=== PATIENT | male | born 1975 | race Caucasian/White ===

== ENCOUNTER 2021-08-16 07:03 | Outpatient (REF) | payer OTHER, SELFPAY ==
[2021-08-16 11:21] LABS: Alanine Aminotransferase 20 U/L (0-40); Albumin Level 4.4 g/dL (3.5-5.0); Alkaline Phosphatase 93 U/L (39-117); Anion Gap 13 (12-20); Aspartate Amino Transferase 14 U/L (5-37); Bilirubin Total 0.6 mg/dL (0.0-1.0); Blood Urea Nitrogen 13 mg/dL (9-16); Calcium 9.2 mg/dL (8.4-10.2); Carbon Dioxide 26 mmol/L (22-29); Chloride 105 mmol/L (96-108); Cholesterol 257 mg/dL; Estimated Glomerular Filt Rate > 60; Glucose Fasting 100 mg/dL (60-99); HDL Cholesterol 46 mg/dL; LDL Cholesterol Calculated 175 mg/dl; Potassium 4.5 mmol/L (3.3-5.1); Sodium 139 mmol/L (135-145); Total Protein 7.3 g/dL (6.5-8.0); Triglycerides 184 mg/dL
[2021-08-16 11:31] LABS: Prostate Specific Antigen Scr 1.23 ng/mL (<0.05-4.0); TSH reflex Free T4 0.97 uIU/mL (0.32-4.0)
== END 2021-08-16 07:04 | disposition home or self-care (01) ==
LOC: HO.WFDLDS 07:03
PROVIDERS: Visit Provider Family Medicine
DX: Z00.00 Encounter for general adult medical examination without abnormal findings (principal); Z12.5 Encounter for screening for malignant neoplasm of prostate
CPT/HCPCS: 36415; 80053; 80061; 84153; 84443

== ENCOUNTER 2021-12-05 09:22 | Outpatient (REF) | payer OTHER, SELFPAY ==
[2021-12-05 13:25] LABS: Influenza A PCR NEGATIVE (Negative); Influenza B PCR NEGATIVE (Negative); Resp Syncy Virus RNA Qual PCR NEGATIVE (Negative); SARS COV2 PCR INHOUSE NEGATIVE (Negative)
== END 2021-12-05 09:23 | disposition home or self-care (01) ==
LOC: HO.LAB 09:22
PROVIDERS: Visit Provider Hospitalist
DX: R68.89 Other general symptoms and signs (principal); Z20.822 Contact with and (suspected) exposure to COVID-19
CPT/HCPCS: 0241U

== ENCOUNTER 2022-01-10 08:34 | Outpatient (REF) | payer OTHER, SELFPAY ==
[2022-01-10 13:13] LABS: Prostate Specific Antigen Scr 2.06 ng/mL (<0.05-4.0); TSH reflex Free T4 0.94 uIU/mL (0.32-4.0)
[2022-01-10 13:31] LABS: Alanine Aminotransferase 24 U/L (0-40); Albumin Level 4.2 g/dL (3.5-5.0); Alkaline Phosphatase 100 U/L (39-117); Anion Gap 10 (12-20); Aspartate Amino Transferase 14 U/L (5-37); Bilirubin Total 0.5 mg/dL (0.0-1.0); Carbon Dioxide 27 mmol/L (22-29); Chloride 105 mmol/L (96-108); Cholesterol 177 mg/dL; Estimated Glomerular Filt Rate > 60; Glucose Fasting 108 mg/dL (60-99); HDL Cholesterol 40 mg/dL; LDL Cholesterol Calculated 111 mg/dl; Sodium 138 mmol/L (135-145); Total Protein 7.1 g/dL (6.5-8.0); Triglycerides 130 mg/dL
[2022-01-10 14:09] LABS: Appearance Urine HAZY; Color Urine YELLOW; Glucose Urine UA NEG (NEG); Leukocyte Esterase Urine NEG (NEG); Nitrite Urine NEG (NEG); Urine Blood NEG (NEG); Urine Ketones NEG (NEG); Urine Protein NEG (NEG-TRACE)
[2022-01-10 14:54] LABS: Microalbum/Creatinine Ratio Ur 4.7 ug/mg cr
[2022-01-10 15:04] LABS: Blood Urea Nitrogen 13 mg/dL (9-16); Calcium 9.4 mg/dL (8.4-10.2); Potassium 4.2 mmol/L (3.3-5.1)
== END 2022-01-10 08:35 | disposition home or self-care (01) ==
LOC: HO.WFDLDS 08:34
PROVIDERS: Visit Provider Family Medicine
DX: Z00.00 Encounter for general adult medical examination without abnormal findings (principal); Z12.5 Encounter for screening for malignant neoplasm of prostate; I10 Essential (primary) hypertension
CPT/HCPCS: 36415; 80053; 80061; 81003; 82043; 84153; 84443

== ENCOUNTER 2023-07-12 16:22 | Outpatient (AMB) | payer OTHER, SELFPAY ==
--- NOTE | 2023-07-12 16:23 | MHC.PC.OV ---
Vital Signs 07/12/23 16:24 Height 5 ft 10 in Weight 196 lb 6 oz BMI 28.2 BP 134/76 Blood Pressure Location Lt brachial Position Sitting Respiration 12 Pulse 83 Pulse Source Pulse Oximeter Temp 97.8 F Temp Source Temporal Artery Scan Pulse Oximetry (%) 98 Oxygen Delivery Method Room Air Intake Visit Reasons: f/u pre-diabetes Intake Note: Patient would like to quit smoking and would like some treatmen options to do so. Bryologist Required: No Accompanied by: Self / Same As Patient Allergies No Known Allergies Allergy (Verified 07/12/23 16:47) Medication List - Last Reconciled 07/12/23 by Chuy Dickerson CNP varenicline (Chantix Starting Month Box) PO PER PKG DIR Tobacco use date assessed: 07/12/23 Dental Screening Dental Screen Date: 07/12/23 Did you have a dental visit in the last 12 months?: No Did you have a dental problem in the last 6 months where you did not have access to dental care?: No Was dental information given to patient?: Yes HPI HPI Comments History of Present Illness Details 48-year-old male presents for pre diabetes follow-up. He was last seen by his PCP on 02/07/2022. His A1c was 5.7%. Lifestyle changes was recommended. He notes he quit smoking cigarette for 1 year with Varenicline; he started smoking 4 months ago. He notes he smokes 15 cigarette daily. He requests Varenicline for smoking cessation. He denies acute symptoms. [facility] Medical History (Updated 07/12/23 @ 16:36 by Mayte Bueno MA) No pertinent past medical history Surgical History (Updated 07/12/23 @ 16:36 by Mayte Bueno MA) No pertinent past surgical history Family History Mother No problems noted. Father No problems noted. 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 Jeffry Bedoya, Yeni Rice, Colten Abraham and colleagues, with an educational anna from [employer]. Review of Systems Const Details: Const Denies chills, Denies fatigue, Denies fever(s), Denies headache(s) and Denies weakness ENT Denies dizziness and Denies headache(s) Card Denies chest pain, Denies lightheadedness, Denies dyspnea and Denies other (Palpitations) Resp Denies cough, Denies dyspnea, Denies wheezing and Denies other ( shortness of breath) GI Denies abdominal pain, Denies melena, Denies hematochezia, Denies change in bowel habits, Denies dyspepsia and Denies nausea Denies hematuria and Denies dysuria Musc Denies abnormal gait, Denies myalgias, Denies arthralgias, Denies numbness and Denies tingling Skin/Breast Denies rash, Denies unusual bruising and Denies wounds Neuro Denies abnormal gait, Denies dizziness, Denies headache(s), Denies memory loss, Denies numbness, Denies Sensory deficit (Neuro), Denies tingling and Denies weakness Psych Denies anxiety, Denies depression, Denies memory loss Endo Denies cold intolerance, Denies fatigue, Denies heat intolerance, Denies polydipsia and Denies polyuria Aller/Immun Denies wheezing Physical exam (Primary Care) Vital Signs: Last Vital Signs Temp 97.8 F 07/12/23 16:24 Pulse 83 07/12/23 16:24 Resp 12 07/12/23 16:24 BP 134/76 07/12/23 16:24 Pulse Ox 98 07/12/23 16:24 Oxygen Delivery Method Room Air 07/12/23 16:24 BMI result Body Mass Index 28.2 Tobacco/Smoking Status: Tobacco use Status Tobacco use date assessed 07/12/23 07/12/23 16:36 Patient Tobacco Use Status Current everyday Tobacco 07/12/23 16:36 e-Cigarette/Vaping Use Never Used 07/12/23 16:36 Const Other: General: no acute distress and well developed Nutritional Appearance: well nourished Orientation/consciousness: patient oriented x3 HENMT Head: Yes normocephalic and Yes atraumatic Eyes General: appearance normal, both eyes and all related structures Pupils: Equal, round and reactive pupils present EOM: EOMs intact bilaterally Resp Effort & Inspection: normal respiratory effort Auscultation: clear to auscultation bilaterally Cardio Rate: regular rate Rhythm: regular rhythm Heart sounds: S1 normal heart sound present, S2 normal heart sound present, no gallops, no murmurs and no rubs GI Palpation (GI): No Abdominal aortic bruit present, Soft to palpation, nontender, No hepatosplenomegaly present and No Rebound tenderness present Auscultation: normal bowel sounds General: Yes no CVA tenderness Back/Spine/Pelvis Back: no CVA tenderness Cervical Spine: cervical ROM normal and No Cervical spine tenderness Thoracic/Lumbar Spine: thoraco-lumbar ROM normal, No pain with thoraco-lumbar ROM, No thoracic spinal tenderness and No lumbar spinal tenderness Extrem General: Yes normal to inspection, No edema and No calf tenderness Skin General: warm and dry. Normal skin color. Normal skin turgor Lesions: no lesions Rashes: no rashes Neuro General: patient oriented x3, gait normal and no focal neuro deficit Cranial nerves: Yes Equal, round and reactive pupils present Cognition (Neuro): normal cognition Gait exam (Neuro): Normal gait present Sensory Exam: No Sensory deficit (Neuro) Psych Appearance: grossly normal Affect: normal affect Attitude: cooperative Thought process: Normal thought process present Results AMB Hemoglobin A1c AMB Hemoglobin A1c 5.4 % Last Edit by Emely Moreira CMA on 07/12/23 16:49 Assessment and Plan Assessment & Plan (1) Pre-diabetes: Code(s): R73.03 - Prediabetes Plan: A1c today is normal, 5.4% ADA diet and routine exercise encouraged Advised to follow-up with PCP for a physical exam Return with symptoms or concerns Verbalized understanding and agreed with treatment plan. (2) Smoker: Code(s): F17.200 - Nicotine dependence, unspecified, uncomplicated Plan: He notes he quit smoking cigarette for 1 year with Varenicline; he started smoking 4 months ago. He notes he smokes 15 cigarette daily. He requests Varenicline for smoking cessation. Smoking cessation encouraged Verenicline ordered. Take as prescribed Encouraged to request a refill after initial treatment Verbalized understanding and agreed with the treatment plan. Orders: Orders AMB Hemoglobin A1c Today Z13.9 - Encounter for screening, unspecified AMB Hemoglobin A1c Today Z13.9 - Encounter for screening, unspecified Medications: Refilled varenicline (Chantix Starting Month Box) PO PER PKG DIR 53 ea 0RF Coding Level of Care Code Est Pt Level 3 (76711) Diagnoses Pre-diabetes R73.03 Smoker F17.200
[2023-07-12 16:24] VITALS: BP 134/76; PULSE 83; RESP 12; TEMP 36.6; O2SAT 98; BMI 28.2
== END 2023-07-12 16:56 | disposition home or self-care (01) ==
PROVIDERS: PCP Family Medicine; Visit Provider Nurse Practitioner Family
DX: R73.03 Prediabetes (principal); F17.210 Nicotine dependence, cigarettes, uncomplicated
CPT/HCPCS: 83036; 99213

== ENCOUNTER 2025-01-19 08:53 | Outpatient (AMB) | payer OTHER, SELFPAY ==
--- NOTE | 2025-01-19 09:09 | MHC.PC.OV ---
Vital Signs 01/19/25 09:14 Height 5 ft 10 in Weight 204 lb 4 oz BMI 29.3 BP 110/70 Blood Pressure Location Rt brachial Position Sitting Respiration 14 Pulse 83 Pulse Source Pulse Oximeter Temp 98.0 F Temp Source Oral Pulse Oximetry (%) 97 Oxygen Delivery Method Room Air Intake Visit Reasons: Annual PE Intake Note: annual Lawn And Garden Technician Required: No Allergies No Known Allergies Allergy (Verified 01/19/25 09:12) Medication List - Last Reconciled 01/19/25 by Matthew He MD varenicline tartrate (Chantix Starting Month Box) PO PER PKG DIR Tobacco use date assessed: 01/19/25 Dental Screening Dental Screen Date: 01/19/25 Did you have a dental visit in the last 12 months?: No Did you have a dental problem in the last 6 months where you did not have access to dental care?: No Was dental information given to patient?: No HPI Annual PE HPI Details 49 y/o male presents for a CPE with f/u labs and health maintenance. No recent labs to review. A1c today 5.6%. Reports R elbow pain. HPI Comments History of Present Illness Details Documentation assistance for Matthew He MD, was provided by Melchor Webber,? Athletic Coach on 01/19/2025 at 9:34 AM EST. I, Dr. He, have read, observed, and verified documentation. [facility] Medical History No pertinent past medical history Surgical History No pertinent past surgical history Family History Mother No problems noted. Father No problems noted. 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 1. Little interest or pleasure in doing things: not at all 2. Feeling down, depressed, or hopeless: not at all 3. Trouble falling or staying asleep, or sleeping too much: not at all 4. Feeling tired or having little energy: not at all 5. Poor appetite or overeating: not at all 6. Feeling bad about yourself - or that you are a failure or have let yourself or your family down: not at all 7. Trouble concentrating on things, such as reading the newspaper or watching television: not at all 8. Moving or speaking so slowly that other people could have noticed. Or the opposite - being so fidgety or restless that you have been moving around a lot more than usual: not at all 9. Thoughts that you would be better off or of hurting yourself in some way: not at all Total score: 0 Depression Screening Interpretation: Negative Depression Screening Done: Yes 20479 - PHQ-9 Billing: Yes Source: Developed by Drs. Jeffry Bedoya, Yeni Rice, Colten Abraham and colleagues, with an educational anna from [employer] Thrive Questionnaire Date Thrive assessed: 01/19/25 I am a: Patient What is your living situation today?: I have a steady place to live Within the past 12 months, did the food you bought not last and you didn't have the money to get more?: Never true Within the past 12 months, did you worry whether your food would run out before you got money to buy more?: Never true Do you have trouble paying for medicines?: No Do you have trouble getting transportation to medical appointments?: No Do you have trouble paying your heating and electricity bill?: No Do you have trouble taking care of your child, family member or friend?: No Do you have trouble with day-to-day activities such as bathing, preparing meals, shopping, managing finances, etc.?: No Are you currently unemployed and looking for a job?: No Are you interested in more education?: No Please select the resources that you would like help with: None Currently or been in a relationship where the following occur: No concerns reported THRIVE Score: 0 AUDIT C Alcohol Use Questionnaire (AUDIT-C) 1. How often do you have a drink containing alcohol?: Never 3. How often do you have six or more drinks on one occasion?: Never Total Score: 0 Score Reviewed/Action Taken: Yes LEONOR-7 AMB Questionnaire LEONOR-7 Date LEONOR - 7 assessed: 01/19/25 Feeling nervous, anxious, or on edge: 0 = Not at all Not being able to stop or control worryin = Not at all Worrying too much about different things: 0 = Not at all Trouble relaxin = Not at all Being so restless that it is hard to sit still: 0 = Not at all Becoming easily annoyed or irritable: 0 = Not at all Feeling afraid as if something awful might happen: 0 = Not at all Total LEONOR-7 score (0-4 normal; 5-9 mild; 10-14 moderate; 15-21 severe): 0 Source: Developed by Drs. Jeffry Bedoya, Yeni Rice, Colten Abraham and colleagues, with an educational anna from [employer]. LEONOR-7 Assessment Billing LEONOR-7 Assessment Tool: LEONOR-7 Assessment 13612 Review of Systems Const Denies chills, Denies fatigue, Denies fever(s), Denies headache(s) and Denies weakness Eyes Denies change in vision ENT Denies dizziness, Denies headache(s), Denies hearing loss, Denies nasal congestion, Denies sinus pain, Denies sinus pressure and Denies sore throat Card Denies chest pain, Denies lightheadedness, Denies dyspnea and Denies other (palpitations) Resp Denies cough, Denies dyspnea and Denies wheezing GI Denies abdominal pain, Denies melena, Denies hematochezia, Denies change in bowel habits, Denies dyspepsia and Denies nausea Denies hematuria and Denies dysuria Musc Denies abnormal gait, Denies myalgias, Denies arthralgias, Denies numbness and Denies tingling Skin/Breast Denies rash, Denies unusual bruising and Denies wounds Neuro Denies abnormal gait, Denies dizziness, Denies headache(s), Denies memory loss, Denies numbness, Denies Sensory deficit (Neuro), Denies tingling and Denies weakness Psych Denies anxiety, Denies depression and Denies memory loss Endo Denies cold intolerance, Denies fatigue, Denies heat intolerance, Denies polydipsia and Denies polyuria Tyrone/Lymph Denies easy bleeding and Denies easy bruising Aller/Immun Denies wheezing Physical exam (Primary Care) Vital Signs: Last Vital Signs Temp 98.0 F 01/19/25 09:14 Pulse 83 01/19/25 09:14 Resp 14 01/19/25 09:14 BP 110/70 01/19/25 09:14 Pulse Ox 97 01/19/25 09:14 Oxygen Delivery Method Room Air 01/19/25 09:14 BMI result Body Mass Index 29.3 Tobacco/Smoking Status: Tobacco use Status Tobacco use date assessed 01/19/25 01/19/25 09:17 Patient Tobacco Use Status Current someday Tobacco 01/19/25 09:17 e-Cigarette/Vaping Use Never Used 01/19/25 09:11 PHQ-9: PHQ-9 Score PHQ-9: Total score 0 01/19/25 09:32 Depression Screening Interpretation: Negative Thrive Assessment: Date of Thrive Assessment Date Thrive assessed 01/19/25 01/19/25 09:11 Currently or been in a relationship where the following occur: No concerns reported Const General: no acute distress, well developed, alert and awake Nutritional Appearance: well nourished Orientation/consciousness: patient oriented x3 HENMT Head: Yes normocephalic and Yes atraumatic Ears: hearing grossly normal bilaterally and TM's normal bilaterally General nose exam: Normal external nose present and Normal nares present Mouth: Normal oral and palatal mucosa present and moist mucous membranes Teeth and gingiva: dentition normal Throat: Yes posterior oropharynx normal Eyes General: appearance normal, both eyes and all related structures Pupils: Equal, round and reactive pupils present and Pupil accommodation reflex normal EOM: EOMs intact bilaterally Neck Neck: Yes normal visual inspection, Yes no lymphadenopathy and Yes trachea midline Thyroid: Thyroid normal Carotids: no bruits Lymphatic: no lymphadenopathy noted Chest Chest palpation & inspection: normal inspection of the chest Resp Effort & Inspection: normal respiratory effort Auscultation: clear to auscultation bilaterally Cardio Rate: regular rate Rhythm: regular rhythm Heart sounds: S1 normal heart sound present, S2 normal heart sound present, no gallops, no murmurs and no rubs Bruits: no abdominal aortic bruits and no carotid bruits GI Palpation (GI): No Abdominal aortic bruit present, Soft to palpation, nontender, No hepatosplenomegaly present and No Rebound tenderness present Auscultation: normal bowel sounds General: Yes no CVA tenderness Back/Spine/Pelvis Back: no CVA tenderness Cervical Spine: cervical ROM normal and No Cervical spine tenderness Thoracic/Lumbar Spine: thoraco-lumbar ROM normal, No pain with thoraco-lumbar ROM, No thoracic spinal tenderness and No lumbar spinal tenderness Skin Lesions: no lesions Rashes: no rashes Trauma: no lacerations or abrasions Wounds: no wounds Nails: normal Neuro General: patient oriented x3 Cranial nerves: Yes Equal, round and reactive pupils present Cognition (Neuro): normal cognition Gait exam (Neuro): Normal gait present Motor exam (neuro): 5/5 motor strength present throughout Sensory Exam: No Sensory deficit (Neuro) Deep tendon reflexes (DTR's): Right patellar reflex intensity grade: 2+ and Left patellar reflex intensity grade: 2+ Extrem General: Yes normal to inspection and No edema Psych Appearance: grossly normal Affect: normal affect Attitude: cooperative Thought process: Normal thought process present Results AMB Hemoglobin A1c AMB Hemoglobin A1c 5.6 % Last Edit by Katie Owusu CMA on 01/19/25 09:31 Results Reviewed Results Reviewed: Laboratory Last Values Hgb A1c (Clinic) 5.6 % (4.0-6.0) 01/19/25 09:23 Coding Level of Care Code Est Pt Level 3 (97581) Est Pt Prev Care 40-64y(62270) Diagnoses Adult general medical examination Z00.00 Pre-diabetes R73.03 Right elbow pain M25.521 Hyperlipidemia E78.5 Smoker F17.200 Screening for prostate cancer Z12.5 Screening for colon cancer Z12.11 Additional Codes LEONOR-7 Assessment Billing - LEONOR-7 Assessment Tool: LEONOR-7 Assessment 08763 ([id number]) PHQ-9 - 18175 - PHQ-9 Billing: Yes ([id number]) Assessment & Plan Assessment & Plan (1) Adult general medical examination: Code(s): Z00.00 - Encounter for general adult medical examination without abnormal findings Category: Medical Plan: 49-year-old?male?presents?for?complete?physical?exam Encouraged?healthy?diet?with?active?lifestyle?and?plenty?of?exercise (2) Pre-diabetes: Code(s): R73.03 - Prediabetes Category: Medical Plan: A1c?has?climbed?again?to?5.6%. 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 Encouraged?relative?rest?with?a?brace?while?at?work.??Take?brace?off?after?work Ice NSAIDs Start?occupational?therapy (4) Hyperlipidemia: Code(s): E78.5 - Hyperlipidemia, unspecified Category: Medical Plan: Check?labs (5) Smoker: Code(s): F17.200 - Nicotine dependence, unspecified, uncomplicated Category: Social Hx Plan: Patient?has?been?using?Chantix?but?only?intermittently?and?says?he?is?smoking?infrequently?now?but?still?does. Encouraged?him?to?use?Chantix?consistently?and?work?at?quitting?smoking Try?to?find?other?healthier?habits?that?he?can?replace?smoking?with. (6) Screening for prostate cancer: Code(s): Z12.5 - Encounter for screening for malignant neoplasm of prostate Category: Medical Plan: Patient?will?get?labs?drawn.??PSA?is?ordered We?will?review?at?telemedicine?appointment?in?a?few?weeks (7) Screening for colon cancer: Code(s): Z12.11 - Encounter for screening for malignant neoplasm of colon Category: Medical Plan: Patient?has?never?had?colonoscopy Referred?to?Gastroenterology?for?1st?screening?colonoscopy Orders: Orders AMB Hemoglobin A1c Today R73.03 - Prediabetes OT Evaluation and Treatment Today M25.521 - Pain in right elbow Referrals Gastroenterology Referral Z12.11 - Encounter for screening for malignant neoplasm of colon
[2025-01-19 09:14] VITALS: BP 110/70; PULSE 83; RESP 14; TEMP 36.7; O2SAT 97; BMI 29.3
--- OUTSIDE RECORDS SUMMARY | 2025-01-19 09:24 | XMS_ITS | Referral Summary ---
Author Organization [facility] Address [address] [place] [address] Care Team Providers Care Behavioral Health Associate Name Role Phone Patient, Has No Pcp Or Ref Primary Care Provider Unavailable Allergies No known active allergies Medications cyclobenzaprine (FLEXERIL) 10 mg tablet Take 1 tablet (10 mg total) by mouth 2 times a day as needed for muscle spasms for up to 5 days. 10 tablet 1 Active lidocaine (LIDODERM) 5% patch Apply 1 patch topically to the affected area daily. Remove and discard patch within 12 hours or as directed. 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 Former Smoker 10/13/2010 Overview (08/22/2017): Quit 2007, smoked 1 ppd x 10 yrs Immunizations Immunization Administration Dates Next Due INFLUENZA, SPLIT VIRUS, TRIVALENT, PF 09/09/2013 Tetanus Toxoid, Reduced Diph theria Toxoid, and Acellular Pertussis Vaccine, Adsorbed 08/31/2011 Social History Tobacco Use Types Packs/Day Years Used Date Smoking Tobacco: Every Day Cigarettes Smokeless Tobacco: Never Alcohol Use Standard Drinks/Week Comments Not Currently 0 (1 standard drink = 0.6 oz pur e alcohol) Sex and Gender Information Value Date Recorded Sex Assigned at Not on file Legal Sex Male 12:51 AM EDT Gender Identity Not on file Sexual Orientation Not on file Last Filed Vital Signs Vital Sign Reading Time Taken Comments Blood Pressure 161/91 02/02/2021 5:50 PM EST Pulse 89 02/02/2021 5:50 PM EST Temperature 36.5 ??C (97.7 ??F) 02/02/2021 5:50 PM ES T Respiratory Rate 20 02/02/2021 5:50 PM EST Oxygen Saturation 98% 02/02/2021 5:50 PM EST Inhaled Oxygen Concentration - - Weight 90.7 kg (200 lb) 02/02/2021 5:50 PM EST Height 175.3 cm (5' 9 ) 02/02/2021 5:50 PM EST Body Mass Index 29.53 02/02/2021 5:50 PM EST Plan of Treatment [place] [id number] [employer] Care Teams Behavioral Health Associate Relationship Specialty Start Date End Date Patient, Has No Pcp Or Ref DO NOT EDIT THIS RECORD VIA PROVIDER ON THE FLY 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
--- OUTSIDE RECORDS SUMMARY | 2025-01-19 09:24 | XMS_ITS | Clinical Summary ---
Author Organization [facility] Address [address] [place] [address] Care Team Providers Care Construction Flagger Name Role Phone Patient, Has No Pcp [...] Toxoid, and Acellular Pertussis Vaccine, Adsorbed 08/31/2011 Family History Medical History Relation Name Comments Other Mother Maternal histor y of Hyperlipidemia /Maternal history of Hypertension /Maternal history of Carotid Artery Stenosis onset in her early 60s Other Paternal Grandmother Paterna l grandmother's history of Alzheimer's Disease Relation Name Status Comments Mother Paternal Grandmother Social History Tobacco Use Types Packs/Day Years [...] 02/02/2021 5:50 PM EST Plan of Treatment Health Maintenance Due Date Last Done Comments Cologuard 1976 Colon Cancer Screening 1976 Colonoscopy 1976 FOBT / Fit Test 1976 HIV Screening 1976 Sigmoidoscopy 1976 Hepatitis B Vaccines (1 of 3 - 19+ 3-dose series) 1995 Pneumococcal Vaccine: Pediat luís (0-5 Years) and At-Risk Patients (6-50 Years) (2 of 2 - PCV) 05/19/2021 05/19/2020 DTaP,Tdap,and Td Vaccines (2 - Td or Tdap) 08/31/2021 08/31/2011 COVID-19 Vaccine (1 - 2023- season) 2024 Influenza Vaccine (#1) 2024 11/27/2018, 2012 Alcohol/Substance Use Screening 12/02/2024 RSV Vaccine (60+ years old a nd patients) (1 - 1-dose 75+ series) 2051 Insurance [employer] Care Teams Construction Flagger Relationship Specialty Start Date End Date Patient, Has No Pcp Or Ref DO NOT EDIT THIS RECORD VIA PROVIDER ON THE FLY 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
--- OUTSIDE RECORDS SUMMARY | 2025-01-19 09:24 | XMS_ITS | Encounter Summary ---
Author Organization [facility] Address [address] [place] [address] Care Team Providers Care Upper Trimmer Name Role Phone Bere Jade MD Primary Care Provider [phone]- [phone] Unknown Pcp, Non Rmg Primary Care Provider Unava ilable Encounter Details Date Type Department Care Team (Late st Contact Info) Description 04/29/[address] 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 documented in this encounter Plan of Treatment Not on file documented as of this encounter Procedures * Due to [facility] law, this organization might not be sharing negative HIV tests. Procedure Name Priority Date/Time Associated Diagnosis Comments GLUCOSE (BLOOD) Routine 04/29/2020 11:30 AM EDT Impaired fasting glucose VENIPUNCTURE Routine 04/29/2020 11:30 AM EDT Hyperlipidemia, unspecified hyperlipidemia type documented in this encounter Results * Due to [place] [employer] law, this organization might not be sharing negative HIV tests. * (ABNORMAL) GLUCOSE (BLOOD) (04/29/2020 11:30 AM EDT) Glucose 102(H) 65 - 99 mg/dL [facility] Comment: ? Fasting reference interval For someone without known diabetes, a glucose value between 100 and 125 mg/dL is consistent with prediabetes and should be confirmed with a follow-up test. 04/29/2020 11:3 0 AM EDT 04/29/2020 10:10 PM EDT Narrative Resulting Agency Comment [id number] us Bere Jade MD LAB SAME DAY RESULT Final Result Performing Organization Address City/State/[facility] Co de Phone Number [facility] [address] [place] [address] * (ABNORMAL) LIPID PANEL WITH REFLEX TO DIRECT LDL (04/29/2020 11:30 AM EDT) Cholesterol 240(H) <200 mg/dL [facility] HDL Cholesterol 47 > OR = 40 mg/dL [facility] Triglyceride 132 <150 mg/dL [facility] LDL Cholesterol 166(H) mg/dL (calc) [facility] Comment: Reference range: <100 Desirable range <100 mg/dL for primary prevention; ?? <70 mg/dL for patients with CHD or diabetic patients with > or = 2 CHD risk factors. LDL-C is now calculated using the Ya calculation, which is a validated novel method providing better accuracy than the Friedewald equation in the estimation of LDL-C. Epifanio WAN et al. JOSELYN. 2013;310(19): 2258-7967 (http://education.Biorasis/faq/OTL132) CHOL/HDL Ratio 5.1(H) <5.0 (calc) [facility] Cholesterol Non-HDL 193(H) <130 mg/dL (calc) [facility] Comment: For patients with diabetes plus 1 major ASCVD risk factor, treating to a non-HDL-C goal of <100 mg/dL (LDL-C of <70 mg/dL) is considered a therapeutic option. 04/29/2020 11:3 0 AM EDT 04/29/2020 10:10 PM EDT Narrative Resulting Agency Comment [id number] us Bere Jade MD LABORATORY Final Resu lt [facility] [address] [place] [address] documented in this encounter Visit Diagnoses Diagnosis Hyperlipidemia, unspecified hyperlipidemia type Impaired fasting glucose documented in this encounter Additional Health Concerns Infection Onset Date Last Indicated Resolved Time COVID-19 Rule-Out 09/28/2020 09/28/2020 10/01/2020 11:12 AM EDT documented as of this encounter Care Teams Upper Trimmer Relationship Specialty Start Date End Date Bere Jade MD [address] [place] [address] PCP - General Family Medicine 11/27/18 06/26/21 Unknown Pcp, Non [facility]mg PCP - General 06/27/21 documented as of this encounter
--- OUTSIDE RECORDS SUMMARY | 2025-01-19 09:24 | XMS_ITS | Encounter Summary ---
Author Organization [facility] Address [address] [place] [address] Care Team Providers Care Senior Account Manager Name Role Phone Bere Jade MD Primary Care Provider [phone]- [phone] Unknown Pcp, Non Rmg Primary Care Provider Unava ilable Reason for Visit * Reason Comments Prior Authorization Issue Encounter Details Date Type Department Care Team (Late st Contact Info) Description 05/13/2020 Telephone [facility]. 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 No / Unsure 05/03/2020 10:37 AM EDT documented as of this encounter Miscellaneous Notes * Telephone Encounter - Bere Jade MD - 05/13/2020 12:13 PM EDT Noted. Thank you for seeing him. * Telephone Encounter - Ar Sheets MD - 05/13/2020 10:03 AM EDT I called the patient and discussed the situation with him. I will be unable to mount an appeal because he clearly does not fit their imaging criteria. Therefore, our only option is to recheck his hearing in 1 years time. He will see me sooner if he notes worsening hearing loss or develops worseningtinnitus. I will asked my staff to put him in for this. * Telephone Encounter - Edna Sandy - 05/13/2020 9:37 AM EDTSummary: [phone] FROM: Radiology Benefits Coordination Your request for a MRI of the brain has been denied by [facility] based on their imaging guide lines. This test should be used when you have certain abnormal findings on a hearing test (15 decibel or greater at 2 consecutive frequencies between 0.5 and 3 kilohertz). Your doctor did not tell us that you have had such an abnormality on your hearing test. For this reason, this test is not medically necessary for you. YOU HAVE A LIMITED AMOUNT OF TIME TO RESPOND TO THE INSURANCE COMPANY. THESE RULES ARE MADE BY THE INSURER, NOT BY [facility] You, as well as the patient, will be receiving a letter of explanation in the mail. If you wish to appeal this decision, please call [phone] within 48 hours and reference ID # [id number]. If you do appeal this decision, please notify me of the outcome so we can schedule the patient accordingly. PLEASE INFORM THE [facility] BENEFITS COORDINATION DEPARTMENT ( IF YOU DO NOT PLAN TO APPEAL THIS DENIAL. IF A DENIAL IS NOT APPEALED, YOU MUST DOCUMENT, VIA A NOTE AND ROUTE TO THE TO RADIOLOGY LEATHER [employer] MESSAGE POOL WHY YOU DID NOT APPEAL THE DENIAL. Thank you, Radiology Benefits Coordination documented in this encounter Plan of Treatment Not on file documented as of this encounter Visit Diagnoses Not on filedocumented in this encounter Additional Health Concerns Infection Onset Date Last Indicated Resolved Time COVID-19 Rule-Out 09/28/2020 09/28/2020 10/01/2020 11:12 AM EDT documented as of this encounter Care Teams Senior Account Manager Relationship Specialty Start Date End Date Bere Jade MD [address] [place] [address] PCP - General Family Medicine 11/27/18 06/26/21 Unknown Pcp, Non Rmg PCP - General 06/27/21 documented as of this encounter
--- OUTSIDE RECORDS SUMMARY | 2025-01-19 09:24 | XMS_ITS | Encounter Summary ---
Author Organization [facility] Address [address] [place] [address] Care Team Providers Care Dog Obedience Instructor Name Role Phone Bere Jade MD Primary Care Provider +1- [phone] Unknown Pcp, Non Rmg Primary Care Provider Unava ilable Encounter Details Date Type Department Care Team (Late st Contact Info) Description 03/01/2019 Orders Only [address] 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 documented in this encounter Plan of Treatment Not on file documented as of this encounter Procedures * Due to [place] [employer] law, this organization might not be sharing negative HIV tests. Procedure Name Priority Date/Time Associated Diagnosis Comments CBC INCLUDES DIFFERENTIAL AND PLATELET COUNT Routine 03/01/2019 9:01 AM EDT Hyperlipidemia, unspecified hyperlipidemia type ALANINE AMINOTRANSFERASE (ALT), SERUM Routine 03/01/2019 9:01 AM EDT Hyperlipidemia, unspecified hyperlipidemia type HEMOGLOBIN A1C Routine 03/01/2019 9:01 AM EDT Impaired fasting glucose LIPID PANEL WITH REFLEX TO DIRECT LDL Routine 03/01/2019 9:01 AM EDT Hyperlipidemia, unspecified hyperlipidemia type BASIC METABOLIC PANEL WITH (GFR) Routine 03/01/2019 9:01 AM EDT Impaired fasting glucose documented in this encounter Results * Due to [facility] law, this organization might not be sharing negative HIV tests. * CBC INCLUDES DIFFERENTIAL AND PLATELET COUNT (03/01/2019 9:01 AM EDT) WBC 7.5 3.8 - 10.8 Thousand/u L [facility] RBC 5.37 4.20 - 5.80 Million/uL [facility] Hemoglobin 15.8 13.2 - 17.1 g/dL [facility] Hematocrit 45.9 38.5 - 50.0 % [facility] MCV 85.5 80.0 - 100.0 fL [facility] MCH 29.4 27.0 - 33.0 pg [facility] MCHC 34.4 32.0 - 36.0 g/dL [facility] RDW 13.0 11.0 - 15.0 % [facility] PLT 332 140 - 400 Thousand/u L [facility] MPV 10.3 7.5 - 12.5 fL [facility] Neutrophils # 4485 1500 - 7800 cells/uL [facility] Lymphocytes # 2123 850 - 3900 cells/uL [facility] Monocytes # 473 200 - 950 cells/uL [facility] Eosinophils # 360 15 - 500 cells/uL [facility] Basophils # 60 0 - 200 cells/uL [facility] Neutrophils % 59.8 % [facility] Lymphocytes % 28.3 % [facility] Monocytes % 6.3 % [facility] Eosinophils % 4.8 % [facility] Basophils % 0.8 % [facility] 03/01/2019 9:01 AM EDT 03/01/2019 8:13 PM EDT Narrative Resulting Agency Comment [id number] us Bere Jade MD LAB SAME DAY RESULT Final Result Performing Organization Address City/[facility]/ZIP Co de Phone Number [facility] [address] [place] [address] * ALANINE AMINOTRANSFERASE (ALT), SERUM (03/01/2019 9:01 AM EDT) ALT (SGPT) 25 9 - 46 U/L [facility] 03/01/2019 9:01 AM EDT 03/01/2019 8:13 PM EDT Narrative Resulting Agency Comment [id number] us Bere Jade MD LAB SAME DAY RESULT Final Result Performing Organization Address [facility] de Phone Number [facility] [address] [place] [address] * (ABNORMAL) BASIC METABOLIC PANEL WITH (GFR) (03/01/2019 9:01 AM EDT) Glucose 101(H) 65 - 99 mg/dL [facility] Comment: ? Fasting reference interval For someone without known diabetes, a glucose value between 100 and 125 mg/dL is consistent with prediabetes and should be confirmed with a follow-up test. Urea Nitrogen Blood (BUN) 18 7 - 25 mg/dL [facility] Creatinine 0.93 0.60 - 1.35 mg/dL [facility] EGFR 101 > OR = 60 mL/min/1. 73m2 [facility] GFR () 117 > OR = 60 mL/min/1. 73m2 [facility] BUN/Creatinine Ratio NOT APPLICABLE 6 - 22 (calc) [facility] Sodium 138 135 - 146 mmol/L [facility] Potassium 4.5 3.5 - 5.3 mmol/L [facility] Chloride 104 98 - 110 mmol/L [facility] Carbon dioxide 24 20 - 32 mmol/L [facility] Calcium 9.2 8.6 - 10.3 mg/dL [facility] 03/01/2019 9:01 AM EDT 03/01/2019 8:13 PM EDT Narrative [facility] - 03/02/2019 2:53 AM EDT Please note that this estimated GFR does not include an adjustment for the patient's height or weight, and can therefore, be viewed as reliable only for patients with heights between 60 and 72 . More precise quantification using a 24-hour urine sample or height-based algorithm is recommended for patients outside of this range of height and for those individuals with more precise needs for GFR calculation. Resulting Agency Comment [id number] Bere Jade MD LABORATORY Final Resu lt Performing Organization Address [facility] Co de Phone Number [facility] [address] [place] [address] * HEMOGLOBIN A1C (03/01/2019 9:01 AM EDT) Hemoglobin A1C 5.4 <5.7 % of total Hgb [facility] Comment: For the purpose of screening for the presence of diabetes: <5.7% ? Consistent with the absence of diabetes 5.7-6.4% ?Consistent with increased risk for diabetes ?(prediabetes) > or =6.5% ??Consistent with diabetes This assay result is consistent with a decreased risk of diabetes. Currently, no consensus exists regarding use of hemoglobin A1c for diagnosis of diabetes in children. According to [place] Diabetes Association (ADA) guidelines, hemoglobin A1c <7.0% represents optimal control in non- diabetic patients. Different metrics may apply to specific patient populations. Standards of Medical Care in Diabetes(ADA). Estimated Average Glucose 115 mg/dL (calc) [facility] 03/01/2019 9:01 AM EDT 03/01/2019 8:13 PM EDT Narrative Resulting Agency Comment [id number] Bere Jade MD LABORATORY Final Resu lt Performing Organization Address [facility] Co de Phone Number [facility] [address] [place] [address] * (ABNORMAL) LIPID PANEL WITH REFLEX TO DIRECT LDL (03/01/2019 9:01 AM EDT) Cholesterol 222(H) <200 mg/dL [facility] HDL Cholesterol 56 >40 mg/dL [facility] Triglyceride 104 <150 mg/dL [facility] LDL Cholesterol 144(H) mg/dL (calc) [facility] Comment: Reference range: <100 Desirable range <100 mg/dL for primary prevention; ?? <70 mg/dL for patients with CHD or diabetic patients with > or = 2 CHD risk factors. LDL-C is now calculated using the Epifanio-Kahn calculation, which is a validated novel method providing better accuracy than the Friedewald equation in the estimation of LDL-C. Epifanio SS et al. JOSELYN. 2013;310(19): 0270-3539 (http://education.Customcells/faq/DQN068) CHOL/HDL Ratio 4.0 <5.0 (calc) [facility] Cholesterol Non-HDL 166(H) <130 mg/dL (calc) [facility] Comment: For patients with diabetes plus 1 major ASCVD risk factor, treating to a non-HDL-C goal of <100 mg/dL (LDL-C of <70 mg/dL) is considered a therapeutic option. 03/01/2019 9:01 AM EDT 03/01/2019 8:13 PM EDT Narrative Resulting Agency Comment [id number] us Bere Jade MD LABORATORY Final Resu lt [facility] [address] [place] [address] documented in this encounter Visit Diagnoses Diagnosis Hyperlipidemia, unspecified hyperlipidemia type Impaired fasting glucose documented in this encounter Additional Health Concerns Infection Onset Date Last Indicated Resolved Time COVID-19 Rule-Out 09/28/2020 09/28/2020 10/01/2020 11:12 AM EDT documented as of this encounter Care Teams Dog Obedience Instructor Relationship Specialty Start Date End Date Bere Jade MD [address] [place] [address] PCP - General Family Medicine 11/27/18 06/26/21 Unknown Pcp, Non Rmg PCP - General 06/27/21 documented as of this encounter
--- OUTSIDE RECORDS SUMMARY | 2025-01-19 09:24 | XMS_ITS | Clinical Summary ---
Author Organization [facility] Address [address] [place] [address] Care Team Providers Care Director Of Extension Work Name Role Phone Unknown Pcp, Non Rmg Primary Care Provider Unava ilable Allergies No known active allergies Medications * This document contains information received from the source organization and may not represent a complete record from that organization. Escitalopram Oxalate (LEXAPRO) 10 MG tabletIndicatio ns:Situational mixed anxiety and depressive disorder TAKE 1 TABLET BY MOUTH EVERY DAY 90 tablet 0 Active Lidocaine (LIDODERM) 5 % patch Apply 1 patch topically 1 Active Chantix Starting Month Jun 0.5 MG X 11 & 1 MG X 42 tabletIndicatio ns:Current every day smoker,Tobacco abuse USE DIRECTED ON PACKAGE INSTRUCTIONS, TRY TO QUIT SMOKING AFTER 1 WEEK 53 tablet 1 Active Active Problems Problem Noted Date Diagnosed Date Situational depression 05/19/2020 Situational mixed anxiety and depressive disorde r 05/19/2020 Sensorineural hearing loss ( SNHL) of right ear with unrestricted hearing of left ear 05/03/2020 BMI 30.0-30.9,adult 11/27/2018 Impaired fasting glucose 11/27/2018 Blood pressure elevated without history of HTN 1 01/28/2018 BMI 27.0-27.9,adult 07/23/2013 Lumbago 01/13/2012 Low back pain syndrome 01/10/2012 Overview (10/11/2021): Hyperlipidemia 08/31/2011 Former smoker 10/13/2010 Overview (11/27/2018): Overview: Quit 2014, smoked 1 ppd x 15 yrs Immunizations Name Administration Dates Next Due Influenza,injectable,quad,Prsrv Fr 11/27/2018 PPV23 (Pneumovax) 05/19/2020 Tdap 08/31/2011 influenza,seasonal,trivalent ,PF (Fluzone, Fluarix, Flulaval) 09/09/2013 Family History Medical History Relation Name Comments Pulmonary Disorder Father smoking Heart Disorder Maternal grandfather Lipid/Cholesterol Abnormality Mother Other Mother carotid artery stenosis Developmental delay/Learning Disability Son strabismus Son Relation Name Status Comments Daughter Alive Father Alive Maternal grandfather (Age 60) Mother Alive Son Alive Social History Tobacco Use Types Packs/Day Years Used Date Smoking Tobacco: Every Day Cigarettes 1 15 Started: 1999; Last attempted to quit: 2014 Smokeless Tobacco: Never Tobacco Cessation:Counseling Given: Yes Alcohol Use Standard Drinks/Week Comments Not Currently 0 (1 standard drink = 0.6 oz pur e alcohol) Drinks very rarely PHQ-2 Answer Date Recorded PHQ-2 Score 4 05/19/2020 Intimate Partner Violence Answer Date R ecorded Fear of Current or Ex-Partner Not on file Emotionally Abused Not on file 07/23/2023 Physically Abused Not on file 07/23/2023 Sexually Abused Not on file 07/23/2023 Feel Safe at Home Not on file 07/23/2023 Sex and Gender Information Value Date Recorded Sex Assigned at Not on file Legal Sex Male 5:38 PM EDT Gender Identity Not on file Sexual Orientation Not on file 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 Not on file Not on file Last Filed Vital Signs Vital Sign Reading Time Taken Comments Blood Pressure 121/78 02/07/2021 12:10 PM EST Pulse 80 02/07/2021 12:10 PM EST Temperature - - Respiratory Rate - - Oxygen Saturation 98% 02/07/2021 12:30 PM EST Inhaled Oxygen Concentration - - Weight 90.5 kg (199 lb 9.6 oz) 02/07/2021 12:10 PM EST Height 177 cm (5' 9.69 ) 05/19/2020 1:16 PM EDT Body Mass Index 28.9 05/19/2020 1:16 PM EDT Plan of Treatment Health Maintenance Due Date Last Done Comments Hepatitis C Screening 1976 Hep B (1 of 3 - 19+ 3-dose series) 1995 Colon Cancer Screening 2021 DTaP/Tdap/Td (2 - Td or Tdap) 08/31/2021 08/31/2011 COVID-19 Vaccine (1 - 2023-2 5 season) 2024 Influenza (#1) 2024 11/27/2018, 09/09/2013 Zoster (Shingrix) (1 of 2) 2026 Physical Discontinued 05/19/2020, 11/27/2018 Pneumococcal Aged Out 05/19/2020 No longer eligi ble based on patient's age to complete this topic LDL Cholesterol Discontinued 08/09/2020, 04/29/2020, 03/01/2019 Chest Imaging Discontinued 02/07/2021, 02/02/2021 HPV Vaccine Aged Out No longer eligi ble based on patient's age to complete this topic Hep A Aged Out No longer eligi ble based on patient's age to complete this topic Hib Aged Out No longer eligi ble based on patient's age to complete this topic Meningococcal ACWY Aged Out No longer eligible based on patient's age to complete this topic Goals Goal Patient Goal Type Associated Problems Recent Progress Patient-Stated? Author Quit smoking / using tobacco Lifestyle No Rainer Ibanez CMA Note: Smoking can cause cancer, heart attacks, hardening of the arteries, bronchitis, emphysema, cough, shortness of breath, wrinkles, and premature aging and premature births. Some benefits of quitting smoking begin right away. Your risk of heart disease begins to decrease as soon as you quit. Your general health may also start to improve immediately because you are not irritating your lungs and more oxygen gets to your body organs. Your blood circulation is likely to get better. Other benefits may include fewer colds and lung infections as well as reduced risk of high blood pressure, stroke, and cancer. Interested in quitting smoking? Discuss medication options with your provider or contact the Quit To Win program at . Any insurance accepted. Quit smoking resources-http://DDRdrive.org Procedures * Due to [place] state law, this organization might not be sharing negative HIV tests. Procedure Name Priority Date/Time Associated Diagnosis Comments XRAY RIBS UNILAT; W/ PA CHEST, 3+ VIEWS - RIGHT HOLDEN (Only criticals called to provider) 02/07/2021 1:14 PM EST Rib injury LIPID PANEL WITH REFLEX TO DIRECT LDL Routine 08/09/2020 9:07 AM EDT Hyperlipidemia, unspecified hyperlipidemia type from Last 3 Months or Most Recently Relevant to Health Maintenance Results * Due to [facility] law, this organization might not be sharing negative HIV tests. * XRAY RIBS UNILAT; W/ PA CHEST, 3+ VIEWS - RIGHT FC (02/07/2021 1:14 PM EST) Anatomical Region Laterality Modality CHEST Radiographic Haleigh ging 02/07/2021 1:25 PM EST Narrative 02/07/2021 1:25 PM EST EXAM: X-RAY RIBS Comparison: None FINDINGS: Frontal view of the chest and oblique views of the right ribs demonstrate the lungs are clear. ??There is no focal consolidation, pleural effusion, or pneumothorax. ??The cardiac and mediastinal silhouettes are normal. Osseous structures are normal without fracture. ??No rib fracture identified. ?? No lytic or blastic changes are present. IMPRESSION: No acute cardiopulmonary abnormality. No rib fracture identified. Procedure Note Raquel Schulz MD - 02/07/2021 EXAM: X-RAY RIBS Comparison: None FINDINGS: Frontal view of the chest and oblique views of the right ribs demonstratethe lungs are clear. There is no focal consolidation, pleural effusion, or pneumothorax. The cardiac and mediastinal silhouettes are normal. Osseous structures are normal without fracture. No rib fractureidentified. No lytic or blastic changes are present. IMPRESSION: No acute cardiopulmonary abnormality. No rib fracture identified. us Savita STALEY IMG XRAY NO CONTRAST ORDERABLE S Final Result * (ABNORMAL) LIPID PANEL WITH REFLEX TO DIRECT LDL (08/09/2020 9:07 AM EDT) Cholesterol 238(H) <200 mg/dL [facility] HDL Cholesterol 48 > OR = 40 mg/dL [facility] Triglyceride 142 <150 mg/dL [facility] LDL Cholesterol 162(H) mg/dL (calc) [facility] Comment: Reference range: <100 Desirable range <100 mg/dL for primary prevention; ?? <70 mg/dL for patients with CHD or diabetic patients with > or = 2 CHD risk factors. LDL-C is now calculated using the Epifanio-Criss calculation, which is a validated novel method providing better accuracy than the Friedewald equation in the estimation of LDL-C. Epifanio SS et al. JOSELYN. 2013;310(19): 8543-0391 (http://education.Keyade/faq/KAD456) CHOL/HDL Ratio 5.0(H) <5.0 (calc) [facility] Cholesterol Non-HDL 190(H) <130 mg/dL (calc) [facility] Comment: For patients with diabetes plus 1 major ASCVD risk factor, treating to a non-HDL-C goal of <100 mg/dL (LDL-C of <70 mg/dL) is considered a therapeutic option. 08/09/2020 9:07 AM EDT 08/09/2020 11:00 PM EDT Narrative Resulting Agency Comment [id number] us Bere Jade MD LABORATORY Final Resu lt Performing Organization Address City/State/[facility] Co de Phone Number [facility] [address] [place] [address] from Last 3 Months or Most Recently Relevant to Health Maintenance Insurance [employer] * Guarantor: [employer] Account Type Relation to Patient Date of Phone Billing Address Occupational [facility] [address] [facility] ATTN [id number] [place] [address] * Guarantor: [employer] Account Type Relation to Patient Date of Phone Billing Address Occupational Health [employer]ydia Employer ACCOUNTS PA[employer]ABLE [address] [place] [address] * Guarantor: [employer] Account Type Relation to Patient Date of Phone Billing Address Occupational Health [employer]ydia Employer [phone] (Home) ACCOUNTS PAYABLE [address] [place] [address] Care Teams Director Of Extension Work Relationship Specialty Start Date End Date Unknown Pcp, Non Rmg PCP - General 06/27/21
--- OUTSIDE RECORDS SUMMARY | 2025-01-19 09:24 | XMS_ITS | Encounter Summary ---
Author Organization [facility] Address [address] [place] [address] Care Team Providers Care Mottler Machine Feeder Name Role Phone Bere Jade MD Primary Care Provider [phone] Unknown Pcp, Non Rmg Primary Care Provider Unava ilable Encounter Details Date Type Department Care Team (Late st Contact Info) Description 08/09/[address] Orders [address] 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 * Bere Jade MD - 08/09/2020 9:07 AM EDT See swiftQueuehart message documented in this encounter Plan of Treatment Not on file documented as of this encounter Procedures * Due to [facility] law, this organization might not be sharing negative HIV tests. Procedure Name Priority Date/Time Associated Diagnosis Comments VENIPUNCTURE Routine 08/09/2020 9:07 AM EDT Impaired fasting glucose ALANINE AMINOTRANSFERASE (ALT), SERUM Routine 08/09/2020 9:07 AM EDT Hyperlipidemia, unspecified hyperlipidemia type HEMOGLOBIN A1C Routine 08/09/2020 9:07 AM EDT Impaired fasting glucose LIPID PANEL WITH REFLEX TO DIRECT LDL Routine 08/09/2020 9:07 AM EDT Hyperlipidemia, unspecified hyperlipidemia type BASIC METABOLIC PANEL WITH (GFR) Routine 08/09/2020 9:07 AM EDT Impaired fasting glucose documented in this encounter Results * Due to [place] state law, this organization might not be sharing negative HIV tests. * (ABNORMAL) LIPID PANEL WITH REFLEX TO [...] LDL-C. Epifanio WAN et al. JOSELYN. 2013;310(19): 3557-2171 (http://education.Brand Networks.Courseload/faq/CEO473) CHOL/HDL Ratio 5.0(H) <5.0 (calc) [facility] Cholesterol Non-HDL 190(H) <130 mg/dL (calc) [facility] Comment: For patients with diabetes plus 1 major ASCVD risk factor, treating to a non-HDL-C goal of <100 mg/dL (LDL-C of <70 mg/dL) is considered a therapeutic option. 08/09/2020 9:07 AM EDT 08/09/2020 11:00 PM EDT Narrative Resulting Agency Comment [id number] Bere Jade MD LABORATORY Final Resu lt Performing Organization Address [facility] Co de Phone Number [facility] [address] [place] [address] * HEMOGLOBIN A1C (08/09/2020 9:07 AM EDT) Pathologist [facility] Hemoglobin A1C 5.3 <5.7 % of total Hgb [facility] [...] diagnosis of diabetes in children. According to [place] Diabetes Association (ADA) guidelines, hemoglobin A1c <7.0% represents optimal control in non- diabetic patients. Different metrics may apply to specific patient populations. Standards of Medical Care in Diabetes(ADA). Estimated Average Glucose 111 mg/dL (calc) [facility] 08/09/2020 9:07 AM EDT 08/09/2020 11:00 PM EDT Narrative Resulting Agency Comment [id number] Bere Jade MD LABORATORY Final Resu lt Performing Organization Address [facility] Co de Phone Number [facility] [address] [place] [address] * (ABNORMAL) BASIC METABOLIC PANEL WITH (GFR) (08/09/2020 9:07 AM EDT) Glucose 103(H) 65 - 99 mg/dL [facility] Comment: ? Fasting reference interval For someone without known diabetes, a glucose value between 100 and 125 mg/dL is consistent with prediabetes and should be confirmed with a follow-up test. Urea Nitrogen Blood (BUN) 15 7 - 25 mg/dL [facility] Creatinine 0.92 0.60 - 1.35 mg/dL [facility] EGFR 101 > OR = 60 mL/min/1. 73m2 [facility] GFR () 117 > OR = 60 mL/min/1. 73m2 [facility] BUN/Creatinine Ratio NOT APPLICABLE 6 - 22 (calc) [facility] Sodium 137 135 - 146 mmol/L [facility] Potassium 5.2 3.5 - 5.3 mmol/L [facility] Chloride 104 98 - 110 mmol/L [facility] Carbon dioxide 26 20 - 32 mmol/L [facility] Calcium 9.2 8.6 - 10.3 mg/dL [facility] 08/09/2020 9:07 AM EDT 08/09/2020 11:00 PM EDT Narrative [facility] - 08/10/2020 6:29 AM EDT Please note that this estimated [...] needs for GFR calculation. Resulting Agency Comment [id number] us Bere Jade MD LABORATORY Final Resu lt [facility] [address] [place] [address] * ALANINE AMINOTRANSFERASE (ALT), SERUM (08/09/2020 9:07 AM EDT) ALT (SGPT) 15 9 - 46 U/L [facility] 08/09/2020 9:07 AM EDT 08/09/2020 11:00 PM EDT Narrative Resulting Agency Comment [id number] us Bere Jade MD LAB SAME DAY RESULT Final Result [facility] [address] [place] [address] * (ABNORMAL) CBC INCLUDES DIFFERENTIAL AND PLATELET COUNT (08/09/2020 9:07 AM EDT) WBC 10.2 3.8 - 10.8 Thousand/u L [facility] RBC 5.23 4.20 - 5.80 Million/uL [facility] Hemoglobin 15.4 13.2 - 17.1 g/dL [facility] Hematocrit 44.5 38.5 - 50.0 % [facility] MCV 85.1 80.0 - 100.0 fL [facility] MCH 29.4 27.0 - 33.0 pg [facility] MCHC 34.6 32.0 - 36.0 g/dL [facility] RDW 13.1 11.0 - 15.0 % [facility] PLT 348 140 - 400 Thousand/u L [facility] MPV 10.2 7.5 - 12.5 fL [facility] Neutrophils # 6334 1500 - 7800 cells/uL [facility] Lymphocytes # 2591 850 - 3900 cells/uL [facility] Monocytes # 571 200 - 950 cells/uL [facility] Eosinophils # 602(H) 15 - 500 cells/uL [facility] Basophils # 102 0 - 200 cells/uL [facility] Neutrophils % 62.1 % [facility] Lymphocytes % 25.4 % [facility] Monocytes % 5.6 % [facility] Eosinophils % 5.9 % [facility] Basophils % 1.0 % [facility] 08/09/2020 9:07 AM EDT 08/09/2020 11:00 PM EDT Narrative Resulting Agency Comment [id number] us Bere Jade MD LAB SAME DAY RESULT Final Result [facility] [address] [place] [address] documented in this encounter Visit Diagnoses Diagnosis Impaired fasting glucose Hyperlipidemia, unspecified hyperlipidemia type documented in this encounter Additional Health Concerns Infection Onset Date Last Indicated Resolved Time COVID-19 Rule-Out 09/28/2020 09/28/2020 10/01/2020 11:12 AM EDT documented as of this encounter Care Teams Mottler Machine Feeder Relationship Specialty Start Date End Date Bere Jade MD [address] [place] [address] PCP - General Family Medicine 11/27/18 06/26/21 Unknown Pcp, Non Rmg PCP - General 06/27/21 documented as of this encounter
== END 2025-01-19 09:51 | disposition home or self-care (01) ==
PROVIDERS: PCP Family Medicine; Visit Provider Family Medicine
DX: Z00.00 Encounter for general adult medical examination without abnormal findings (principal); R73.03 Prediabetes; M25.521 Pain in right elbow; E78.5 Hyperlipidemia, unspecified; F17.200 Nicotine dependence, unspecified, uncomplicated; Z12.5 Encounter for screening for malignant neoplasm of prostate; Z12.11 Encounter for screening for malignant neoplasm of colon

== ENCOUNTER → 2025-01-19 08:53 | Outpatient (BNVA) | payer OTHER, SELFPAY | PROVIDERS: PCP Family Medicine; Visit Provider Family Medicine | DX: Z00.00 Encounter for general adult medical examination without abnormal findings (principal); R73.03 Prediabetes; M25.521 Pain in right elbow; E78.5 Hyperlipidemia, unspecified; F17.210 Nicotine dependence, cigarettes, uncomplicated | CPT/HCPCS: 83036; 96127 ==

== ENCOUNTER 2025-07-27 09:45 | Outpatient (AMB) | payer OTHER, SELFPAY ==
--- NOTE | 2025-07-27 09:54 | A.OFFVIS_ITS ---
Vital Signs 07/27/25 09:57 Height 5 ft 10 in Weight 198 lb 6.656 oz BMI 28.5 BP 142/87 H Blood Pressure Location Lt brachial Position Sitting Pulse 78 Intake Visit Reasons: Colonoscopy Screening Intake Note: Damaso presents in the office as a colonoscopy screening. CC: States that he is just due for a colonoscopy. Fibre Composite Technician Required: No Allergies No Known Allergies Allergy (Verified 07/27/25 10:14) HPI HPI Colonoscopy Screening: Details: 50-year-old male here for a preprocedural meetings discuss a screening colonoscopy. He is referred by Matthew He. PMX Smoker Pre diabetes High cholesterol * SURGICAL HISTORY pt denie * ALLERGIES: NKDA * [employer] LABS: NONE IN SYSTEM TODAY'S VISIT This is his first colonoscopy. He denies bowel or upper GI problems. He is naive to anes and sed No card or resp. No ID problems. No FHX known of CRC or polyps. [facility] Medical History Exposure to COVID-19 virus Flu-like symptoms Adult general medical examination Encounter for general adult medical examination without abnormal findings Laboratory exam ordered as part of routine general medical examination Screening for prostate cancer Screening for colon cancer No pertinent past medical history Surgical History No pertinent past surgical history Family History Mother No problems noted. Father No problems noted. 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 Gender identity: Male Cognitive needs: No Hearing needs: No Vision needs: No Review of Systems Const Denies fatigue, Denies fever(s), Denies night sweats, Denies poor appetite and Denies weight loss ENT Reports Normal hearing present, Denies dental pain, Denies dysphagia, Denies hearing loss, Denies mouth pain, Denies odynophagia, Denies throat swelling, Denies tongue swelling and Reports other (Dentition adequate) Card Reports no additional complaints Resp Reports no additional complaints GI Details: Denies abdominal pain, Denies melena, Denies bloating, Denies hematochezia, Denies constipation, Denies GI cramping, Denies dysphagia, Denies excessive flatus, Denies early satiety, Denies heartburn, Denies diarrhea, Denies nausea, Denies odynophagia, Denies vomiting and Denies hematemesis Skin/Breast Denies pruritus, Denies lesions, Denies rash and Denies jaundice Neuro Reports Normal hearing present and Denies Abnormal speech present Endo Denies fatigue Aller/Immun Denies throat swelling and Denies tongue swelling Physical Exam Vital Signs: Last Vital Signs Pulse 78 07/27/25 09:57 BP 142/87 H 07/27/25 09:57 BMI result Body Mass Index 28.5 Const General: cooperative, no acute distress, well developed and well groomed Nutritional Appearance: well nourished and overweight Orientation/consciousness: oriented to person, oriented to place and oriented to time Limitations: No language barrier HEENT Head: Yes normocephalic and Yes atraumatic Eyes General: appearance normal, both eyes and all related structures Pupils: Equal, round and reactive pupils present Neck Neck: Yes normal visual inspection and Yes no lymphadenopathy Thyroid: Thyroid normal Resp Effort & Inspection: normal respiratory effort and able to speak in complete sentences Auscultation: clear to auscultation bilaterally Cardio Rate: regular rate Rhythm: regular rhythm Heart sounds: Normal, physiologic split S2 sound present Peripheral pulses: radial pulses present and posterior tibial pulses present GI Inspection: No distended and No Abdominal panniculus present Palpation (GI): Soft to palpation, nontender, no guarding, not rigid and No hepatosplenomegaly present Percussion: Yes normal to percussion Auscultation: normal bowel sounds Rectal Exam - Male: Yes deferred Skin General skin exam: no rashes or lesions noted, turgor normal, skin not dry, no jaundice, No spider nevi and no striae Rashes: no rashes Nails: normal Neuro General: oriented to person, oriented to place and oriented to time Cranial nerves: Yes Equal, round and reactive pupils present and Yes Normal hearing present Speech: No Abnormal speech present Extrem General: Yes normal to inspection, No clubbing, No cyanosis and No edema Psych Appearance: grossly normal and well kempt Mental Status: mental status grossly normal Speech and movement: Normal speech and movement present Affect: normal affect Attitude: cooperative Thought process: Normal thought process present and not confabulating Thought content: Normal thought content present Insight: Good insight present (Psych) Judgement: Good judgement present (Psych) Assessment & Plan Assessment & Plan (1) Pre-op examination: Code(s): Z01.818 - Encounter for other preprocedural examination Category: Medical Plan This is his first colonoscopy. He denies bowel or upper GI problems. He is naive to anes and sed No card or resp. No ID problems. No FHX known of CRC or polyps. Orders: Orders Colonoscopy - GI Use Only Today Z01.818 - Encounter for other preprocedural examination Comprehensive Met. Panel Today Z01.818 - Encounter for other preprocedural examination Complete Blood Count Auto Diff Today Z01.818 - Encounter for other preprocedural examination Medications: New bisacodyl (Dulcolax (bisacodyl)) 10 mg (2 x 5 mg) PO BEDTIME 4 tabs 0RF 2 days peg 3350-electrolytes 236-22.74-6.74 -5.86 gram (Golytely) until fecal effluent is clear; do not exceed a total volume of 2,000 mL 240 mL PO Q10M 4,000 mL 0RF 1 day Z12.11 - Encounter for screening for malignant neoplasm of colon Coding Level of Care Code New Pt Level 3 (95635) Diagnoses Pre-op examination Z01.818
[2025-07-27 09:57] VITALS: BP 142/87; PULSE 78; BMI 28.5
--- OUTSIDE RECORDS SUMMARY | 2025-07-27 10:29 | XMS_ITS | Encounter Summary ---
Author Organization [facility] Address [address] [place] [address] Care Team Providers Care Director Case Management Name Role Phone Bere Jade MD Primary Care Provider +1- [phone] Unknown Pcp, Non Rmg Primary Care Provider Unava ilable Encounter Details Date Type Department Care Team (Late st Contact Info) Description 03/01/[address] Orders [address] 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 documented in this encounter Plan of Treatment Not on file documented as of this encounter Procedures * Due to [place] [employer] law, this organization might not be sharing [...] in this encounter Results * Due to [facility] law, this organization might not be [...] 8:13 PM EDT Narrative Resulting Agency Comment [id number] us Bere Jade MD LAB SAME DAY RESULT Final Result Performing Organization Address City/[facility]/ZIP Co de Phone Number [facility] [address] [place] [address] * ALANINE AMINOTRANSFERASE (ALT), SERUM (03/01/2019 9:01 AM EDT) ALT (SGPT) 25 9 - 46 U/L [facility] 03/01/2019 9:01 AM EDT 03/01/2019 8:13 PM EDT Narrative Resulting Agency Comment [id number] us Bere Jade MD LAB SAME DAY RESULT Final Result Performing Organization Address [facility] de Phone Number [facility] [address] [place] [address] * (ABNORMAL) BASIC METABOLIC PANEL WITH (GFR) (03/01/2019 9:01 AM EDT) Glucose 101(H) 65 - 99 mg/dL [facility] Comment: Fasting reference interval For someone without known [...] needs for GFR calculation. Resulting Agency Comment [id number] Bere Jade MD LABORATORY Final Resu lt Performing Organization Address [facility] Co de Phone Number [facility] [address] [place] [address] * HEMOGLOBIN A1C (03/01/2019 9:01 AM EDT) Hemoglobin A1C 5.4 <5.7 % of total Hgb [facility] Comment: For the purpose of screening for the presence of diabetes: <5.7% Consistent with the absence of diabetes 5.7-6.4% Consistent with increased risk for diabetes (prediabetes) > or =6.5% Consistent with diabetes This assay result is consistent with a decreased risk of diabetes. Currently, no consensus exists regarding use of hemoglobin A1c for diagnosis of diabetes in children. According to [place] Diabetes Association (ADA) guidelines, hemoglobin A1c <7.0% represents optimal control in non- diabetic patients. Different metrics may apply to specific patient populations. Standards of Medical Care in Diabetes(ADA). Estimated Average Glucose 115 mg/dL (calc) [facility] 03/01/2019 9:01 AM EDT 03/01/2019 8:13 PM EDT Narrative Resulting Agency Comment [id number] Bere Jade MD LABORATORY Final Resu lt Performing Organization Address [facility] Co de Phone Number [facility] [address] [place] [address] * (ABNORMAL) LIPID PANEL WITH REFLEX TO DIRECT LDL (03/01/2019 9:01 AM EDT) Cholesterol 222(H) <200 mg/dL [facility] HDL Cholesterol 56 >40 mg/dL [facility] Triglyceride 104 <150 mg/dL [facility] LDL Cholesterol 144(H) mg/dL (calc) [facility] Comment: Reference range: <100 Desirable range <100 mg/dL for primary prevention; <70 mg/dL for patients with CHD or diabetic patients with > or = 2 CHD risk factors. LDL-C is now calculated using the Ya calculation, which is a validated novel method providing better accuracy than the Friedewald equation in the estimation of LDL-C. Epifanio WAN et al. JOSELYN. 2013;310(19): 3681-5806 (http://education.Graph Story.Paper Hunter/faq/FKV145) CHOL/HDL Ratio 4.0 <5.0 (calc) [facility] Cholesterol Non-HDL 166(H) <130 mg/dL (calc) [facility] Comment: For patients with diabetes plus 1 major ASCVD risk factor, treating to a non-HDL-C goal of <100 mg/dL (LDL-C of <70 mg/dL) is considered a therapeutic option. 03/01/2019 9:01 AM EDT 03/01/2019 8:13 PM EDT Narrative Resulting Agency Comment [id number] us Bere Jade MD LABORATORY Final Resu lt [facility] [address] [place] [address] documented in this encounter Visit Diagnoses Diagnosis Hyperlipidemia, unspecified hyperlipidemia type Impaired fasting glucose documented in this encounter Additional Health Concerns Infection Onset Date Last Indicated Resolved Time COVID-19 Rule-Out 09/28/2020 09/28/2020 10/01/2020 11:12 AM EDT documented as of this encounter Care Teams Director Case Management Relationship Specialty Start Date End Date Bere Jade MD [address] [place] [address] PCP - General Family Medicine 11/27/18 06/26/21 Unknown Pcp, Non Rmg PCP - General 06/27/21 documented as of this encounter
--- OUTSIDE RECORDS SUMMARY | 2025-07-27 10:29 | XMS_ITS | Clinical Summary ---
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 Any insurance accepted. Quit smoking resources-[email or web address] Procedures * Due to [place] state law, this organization might not be [...] to Health Maintenance Results * Due to [place] state law, this organization might not be [...] right ribs demonstrate the lungs are clear. There is no focal consolidation, pleural effusion, or pneumothorax. The cardiac and mediastinal silhouettes are normal. Osseous structures are normal without fracture. No rib fracture identified. No lytic or blastic changes are present. [...] abnormality. No rib fracture identified. us Savita Kimberlyn PA IMG XRAY NO CONTRAST ORDERABLE S Final [...] LDL-C. Epifanio SS et al. JOSELYN. 2013;310(19): 7018-8917 (http://education.CoolIT Systems/faq/OGP102) CHOL/HDL Ratio 5.0(H) <5.0 (calc) [facility] Cholesterol Non-HDL 190(H) <130 mg/dL (calc) [facility] Comment: For patients with diabetes plus 1 major ASCVD risk factor, treating to a non-HDL-C goal of <100 mg/dL (LDL-C of <70 mg/dL) is considered a therapeutic option. 08/09/2020 9:07 AM EDT 08/09/2020 11:00 PM EDT Narrative Resulting Agency Comment [id number] us Bere Jade MD LABORATORY Final Resu lt [facility] [address] [place] [address] from Last 3 Months or Most Recently Relevant to Health Maintenance Insurance [employer] * Guarantor: [employer] Account Type Relation to Patient Date of Phone Billing Address [employer] ACCOUNTS PAYABLE [address] [place] [address] * Guarantor: [employer] Account Type Relation to Patient Date of Phone Billing Address [employer] Employ[employer] [phone] (Home) ACCOUNTS PAYABLE [address] [place] [id number] Care Teams Dinkey Operator Slag Relationship Specialty Start Date End Date Unknown Pcp, Non Rmg PCP - General 06/27/21
--- OUTSIDE RECORDS SUMMARY | 2025-07-27 10:29 | XMS_ITS | Encounter Summary ---
Author Organization [facility] Address [address] [place] [address] Care Team Providers Care Mobile Sales Assistant Name Role Phone Bere Jade MD Primary Care Provider +1- [phone] Unknown Pcp, Non Rmg Primary Care Provider Unava ilable Encounter Details Date Type Department Care Team (Late st Contact Info) Description 08/09/[address] 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 * Bere Jade MD - 08/09/2020 9:07 AM EDT See Carestreamhart message documented in this encounter Plan of Treatment Not on file documented as of this encounter Procedures * Due to [facility] law, this organization might not be sharing [...] in this encounter Results * Due to [place] state law, this organization might not be [...] LDL-C. Epifanio WAN et al. JOSELYN. 2013;310(19): 0406-4547 (http://education.Scarlet Lens Productions.SavvySync/faq/SSQ010) CHOL/HDL Ratio 5.0(H) <5.0 (calc) [facility] Cholesterol Non-HDL 190(H) <130 mg/dL (calc) [facility] Comment: For patients with diabetes plus 1 major ASCVD risk factor, treating to a non-HDL-C goal of <100 mg/dL (LDL-C of <70 mg/dL) is considered a therapeutic option. 08/09/2020 9:07 AM EDT 08/09/2020 11:00 PM EDT Narrative Resulting Agency Comment [id number] Bere Jade MD LABORATORY Final Resu lt Performing Organization Address [facility] Co de Phone Number [facility] [address] [place] [address] * HEMOGLOBIN A1C (08/09/2020 9:07 AM EDT) Hemoglobin A1C 5.3 <5.7 % of total [...] diagnosis of diabetes in children. According to [place] Diabetes Association (ADA) guidelines, hemoglobin A1c <7.0% represents optimal control in non- diabetic patients. Different metrics may apply to specific patient populations. Standards of Medical Care in Diabetes(ADA). Estimated Average Glucose 111 mg/dL (calc) [facility] 08/09/2020 9:07 AM EDT 08/09/2020 11:00 PM EDT Narrative Resulting Agency Comment [id number] Bere Jade MD LABORATORY Final Resu lt Performing Organization Address [facility] Co de Phone Number [facility] [address] [place] [address] * (ABNORMAL) BASIC METABOLIC PANEL WITH (GFR) [...] needs for GFR calculation. Resulting Agency Comment [id number] us Bere Jade MD LABORATORY Final Resu lt [facility] [address] [place] [address] * ALANINE AMINOTRANSFERASE (ALT), SERUM (08/09/2020 9:07 AM EDT) ALT (SGPT) 15 9 - 46 U/L [facility] 08/09/2020 9:07 AM EDT 08/09/2020 11:00 PM EDT Narrative Resulting Agency Comment [id number] us Bere Jade MD LAB SAME DAY RESULT Final Result [facility] [address] [place] [address] * (ABNORMAL) CBC INCLUDES DIFFERENTIAL AND PLATELET [...] 11:00 PM EDT Narrative Resulting Agency Comment [id number] us Bere Jade MD LAB SAME DAY RESULT Final Result Performing Organization Address City/State/[facility] de Phone Number [facility] [address] [place] [address] documented in this encounter Visit Diagnoses Diagnosis Impaired fasting glucose Hyperlipidemia, unspecified hyperlipidemia type documented in this encounter Additional Health Concerns Infection Onset Date Last Indicated Resolved Time COVID-19 Rule-Out 09/28/2020 09/28/2020 10/01/2020 11:12 AM EDT documented as of this encounter Care Teams Mobile Sales Assistant Relationship Specialty Start Date End Date Bere Jade MD [address] [place] [address] PCP - General Family Medicine 11/27/18 06/26/21 Unknown Pcp, Non Rmg PCP - General 06/27/21 documented as of this encounter
--- OUTSIDE RECORDS SUMMARY | 2025-07-27 10:29 | XMS_ITS | Encounter Summary ---
Author Organization [facility] Address [address] [place] [address] Care Team Providers Care Salon Shampoo Assistant Name Role Phone Bere Jade MD Primary Care Provider +1- [phone] Unknown Pcp, Non Rmg Primary Care Provider Unava ilable Reason for Visit * Reason Comments Prior Authorization Issue Encounter Details Date Type Department Care Team (Late st Contact Info) Description 05/13/2020 Telephone [facility]. 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 This [...] ARE MADE BY THE INSURER, NOT BY [facility] You, as well as the patient, will be receiving a letter of explanation in the mail. If you wish to appeal this decision, please call [phone] within 48 hours and reference ID # [id number]. If you do appeal this decision, please notify me of the outcome so we can schedule the patient accordingly. PLEASE INFORM THE [facility] BENEFITS COORDINATION DEPARTMENT ( IF YOU DO NOT PLAN TO APPEAL THIS DENIAL. IF A DENIAL IS NOT APPEALED, YOU MUST DOCUMENT, VIA A NOTE AND ROUTE TO THE TO RADIOLOGY URBAN AND REGIONAL PLANNER MESSAGE POOL WHY YOU DID NOT APPEAL THE DENIAL. Thank you, Radiology Benefits Coordination documented in this encounter Plan of Treatment Not on file documented as of this encounter Visit Diagnoses Not on filedocumented in this encounter Additional Health Concerns Infection Onset Date Last Indicated Resolved Time COVID-19 Rule-Out 09/28/2020 09/28/2020 10/01/2020 11:12 AM EDT documented as of this encounter Care Teams Salon Shampoo Assistant Relationship Specialty Start Date End Date Bere Jade MD [address] [place] [address] PCP - General Family Medicine 11/27/18 06/26/21 Unknown Pcp, Non Rmg PCP - General 06/27/21 documented as of this encounter
--- OUTSIDE RECORDS SUMMARY | 2025-07-27 10:29 | XMS_ITS | Encounter Summary ---
Author Organization [facility] Address [address] [place] [address] Care Team Providers Care Intermodal Owner Operator Truck Driver Name Role Phone Bere Jade MD Primary Care Provider +1- [phone] Unknown Pcp, Non Rmg Primary Care Provider Unava ilable Encounter Details Date Type Department Care Team (Late st Contact Info) Description 04/29/[address] 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 documented in this encounter Plan of Treatment Not on file documented as of this encounter Procedures * Due to [facility] law, this organization might not be sharing negative HIV tests. Procedure Name Priority Date/Time Associated Diagnosis Comments GLUCOSE (BLOOD) Routine 04/29/2020 11:30 AM EDT Impaired fasting glucose VENIPUNCTURE Routine 04/29/2020 11:30 AM EDT Hyperlipidemia, unspecified hyperlipidemia type documented in this encounter Results * Due to [place] [employer] law, this organization might not be sharing [...] 10:10 PM EDT Narrative Resulting Agency Comment [id number] us Bere Jade MD LAB SAME DAY RESULT Final Result Performing Organization Address City/State/[facility] Co de Phone Number [facility] [address] [place] [phone] * (ABNORMAL) LIPID PANEL WITH REFLEX TO [...] LDL-C. Epifanio WAN et al. JOSELYN. 2013;310(19): 9749-9345 (http://education.GoWorkaBit.[employer]/faq/VCQ528) CHOL/HDL Ratio 5.1(H) <5.0 (calc) [facility] Cholesterol Non-HDL 193(H) <130 mg/dL (calc) [facility] Comment: For patients with diabetes plus 1 major ASCVD risk factor, treating to a non-HDL-C goal of <100 mg/dL (LDL-C of <70 mg/dL) is considered a therapeutic option. 04/29/2020 11:3 0 AM EDT 04/29/2020 10:10 PM EDT Narrative Resulting Agency Comment [id number] us Bere Jade MD LABORATORY Final Resu lt [facility] [address] [place] [address] documented in this encounter Visit Diagnoses Diagnosis Hyperlipidemia, unspecified hyperlipidemia type Impaired fasting glucose documented in this encounter Additional Health Concerns Infection Onset Date Last Indicated Resolved Time COVID-19 Rule-Out 09/28/2020 09/28/2020 10/01/2020 11:12 AM EDT documented as of this encounter Care Teams Intermodal Owner Operator Truck Driver Relationship Specialty Start Date End Date Bere Jade MD [address] [place] [address] PCP - General Family Medicine 11/27/18 06/26/21 Unknown Pcp, Non Rmg PCP - General 06/27/21 documented as of this encounter
--- OUTSIDE RECORDS SUMMARY | 2025-07-27 10:29 | XMS_ITS | Clinical Summary ---
Author Organization [facility] Address [address] [place] [address] Care Team Providers Care Product Finisher Name Role Phone Patient, Has No Pcp [...] 89 02/02/2021 5:50 PM EST Temperature 36.5 C (97.7 F) 02/02/2021 5:50 PM EST Respiratory Rate 20 02/02/2021 5:50 PM EST [...] COVID-19 Vaccine (1 - 2023- season) 2024 Alcohol/Substance Use Screening 12/02/2024 Influenza Vaccine (#1) 2025 11/27/2018, 2012 RSV Vaccine (60+ years old a nd patients) (1 - 1-dose 75+ series) 2051 Insurance WORKERS COMPENSATION Care Teams Product Finisher Relationship Specialty Start Date End Date Patient, Has No Pcp Or Ref DO NOT EDIT THIS RECORD VIA PROVIDER ON THE FLY PCP - General Psychology Intern 02/02/21
== END 2025-07-27 11:01 | disposition home or self-care (01) ==
LOC: HO.HGI 09:46
PROVIDERS: PCP Family Medicine; Visit Provider Nurse Practitioner
DX: Z01.818 Encounter for other preprocedural examination (principal); Z12.11 Encounter for screening for malignant neoplasm of colon
CPT/HCPCS: S0285